=== PATIENT | female | born 1965 | race Caucasian/White ===

== ENCOUNTER 2018-12-03 08:06 | Day surgery (SDC) | payer BC ==
--- NOTE | 2018-12-03 07:25 | PCM.PREANE ---
Preanesthetic Assessment - Anesthesia/Transfusion/Family Hx Anesthesia History: Prior Anesthesia Without Reaction Family History of Anesthesia Reaction: No Transfusion History: No Prior Transfusion(s) Intubation History: Unknown - Review of Systems General: No Symptoms Pulmonary: No Symptoms (ETOH: rarely) Cardiovascular: No Symptoms (HTN/History of SVT:) Gastrointestinal: No Symptoms Neurological: No Symptoms (Obesity) Other: Reports: None, Diabetes (AM blood sugar:) - Physical Assessment NPO Status Date: 12/02/18 NPO Status Time: 23:00 Pulse: 68 O2 Sat by Pulse Oximetry: 94 Respiratory Rate: 16 Blood Pressure: 145/90 Temperature: 36.3 C Height: 1.68 m Weight: 122.47 kg ASA Class: 3 Mental Status: Alert & Oriented x3 Airway Class: Mallampati = 2 Dentition: Reports: Normal Dentition, [place](s), [place] Thyro-Mental Finger Breadths: 3 Mouth Opening Finger Breadths: 3 ROM/Head Extension: Full Lungs: Clear to Auscultation, Normal Respiratory Effort Cardiovascular: Regular Rate, Regular Rhythm, No Murmurs - Lab Values: All lab values reviewed and noted and within acceptable ranges to proceed with scheduled procedure. - Imaging/EKG Impressions: EKG: SR rate=60 - Allergies Allergies/Adverse Reactions: Allergies Allergy/AdvReac Type Severity Reaction Status Date / Time No Known Allergies Allergy Verified 12/02/18 10:08 - Anesthesia Plan Pre-Op Medication Ordered: Beta Madeline Beta Madeline: Nadolol Med Last Dose Date: 12/03/18 Med Last Dose Time: 06:45 - Acknowledgements Anesthesia Type Planned: MAC Pt an Appropriate Candidate for the Planned Anesthesia: Yes Alternatives and Risks of Anesthesia Discussed w Pt/Guardian: Yes Pt/Guardian Understands and Agrees with Anesthesia Plan: Yes PreAnesthesia Questionnaire HEENT History: Reports: Impaired Vision Cardiovascular History: Reports: Arrhythmia, Hypertension, Other (See Below) Other Cardiovascular History: svt Respiratory History: Reports: None Genitourinary History: Reports: None PEDIATRIC ASSISTANT History: Reports: None Neurological History: Reports: None Psychiatric History: Reports: None Endocrine/Metabolic History: Reports: Diabetes, Type II Hematologic History: Reports: None Immunologic History: Reports: None Oncologic (Cancer) History: Reports: None Dermatologic History: Reports: None - Past Surgical History Head Surgeries/Procedures: Reports: None HEENT Surgical History: Reports: Tonsillectomy Cardiovascular Surgical History: Reports: None Respiratory Surgical History: Reports: None GI Surgical History: Reports: Other (See Below) Other GI Surgeries/Procedures: SIGMOIDOSCOPY Female Surgical History: Reports: Breast Biopsy Male Surgical History: Reports: None Endocrine Surgical History: Reports: None Neurological Surgical History: Reports: None Musculoskeletal Surgical History: Reports: None Oncologic Surgical History: Reports: None Dermatological Surgical History: Reports: None - SUBSTANCE USE Smoking Status *Q: Never Smoker Recreational Drug Use History: No - HOME MEDS Home Medications: Home Meds Canagliflozin [Invokana] 300 mg PO DAILY 12/02/18 [History] Ibuprofen 600 mg PO Q4H PRN 12/02/18 [History] Lisinopril 10 mg PO DAILY 12/02/18 [History] Meloxicam 15 mg PO DAILY 12/02/18 [History] Nadolol [Naldol] 40 mg PO DAILY 12/02/18 [History] Triamterene/Hydrochlorothiazid [Maxzide 75 mg-50 mg Tablet] 1 tab PO DAILY 12/02 [History] metFORMIN HCl [Metformin HCl] 1,000 mg PO BID 12/02/18 [History] - CURRENT (IN HOUSE) MEDS Current Meds: Current Medications Lactated Ringer's (Ringers, Lactated) 1,000 mls @ 125 mls/hr IV ASDIRECTED TIMUR Stop: 12/03/18 23:00 Lidocaine/Sodium Bicarbonate (Buffered Lidocaine 1% In Ns 8.4%) 0.25 ml IDERM ONETIME PRN PRN Reason: Prior to IV Start Stop: 12/03/18 18:00 Sodium Chloride (Saline Flush) 10 ml FLUSH ASDIRECTED PRN PRN Reason: Keep Vein Open Stop: 12/03/18 18:00
[~2018-12-03 08:06] MED LIST: Lactated Ringers 1,000 ML IV SCH; Lactated Ringers 1,000 ML ONE; Lidocaine 1% 6 ML ONE; Lidocaine 1%/Sod Bicarbonate in NS 8.4% 1 ML Syringe IDERM PRN; Ondansetron 4 MG/2 ML SDV ONE; Sodium Chloride 0.9% 10 ML Syringe FLUSH PRN; Succinylcholine/Normal Saline 100 MG/5 ML Syringe ONE
[2018-12-03] MEDS ORDERED: HYDROmorphone 0.5 MG/0.5 ML Syringe ONE (08:07)
[2018-12-03] MEDS ORDERED: Propofol 200 MG/20 ML SDV ONE (08:07)
[2018-12-03] MEDS ORDERED: Midazolam 1 MG/ML 2 ML SDV ONE (08:08)
[2018-12-03] MEDS ORDERED: fentaNYL 100 MCG/2 ML SDV ONE (08:08)
[2018-12-03] MEDS ORDERED: Lidocaine 1% with EPINEPHrine 1:100,000 20 ML MDV ONE (08:37)
[2018-12-03] MEDS ORDERED: Sodium Chloride 0.9% 50 ML SDV ONE (08:38)
--- NOTE | 2018-12-03 08:50 | PCM.OPNOTE ---
- General Post-Op/Procedure Note Date of Surgery/Procedure: 12/03/18 Operative Procedure(s): Hysteroscopy, D&C Findings: Hysteroscopy with no discrete endometrial polyp encountered. Few areas of more thickened endometrial lining. Mostly present on the anterior surface of the uterus. Difficult to get pressure high enough to see ostia completely, but grossly normal. Pre Op Diagnosis: Office biopsy with portions of endometrial polyp and squamous morules Post-Op Diagnosis: Same Anesthesia Technique: MAC Primary Surgeon: Desi Cardozo Anesthesia Provider: Gardenia Myles Pathology: Endometrial curetting sent to pathology Fluid Replacement, Intraop: 800 Output, Urine Amount: 20 EBL in mLs: 5 Complications: None Condition: Good Free Text/Narrative:: The risks, benefits, indications, potential complications, and alternatives were explained to the patient and informed consent obtained. Patient was brought to the OR where anesthesia was induced without difficulty. She was placed in the dorsal lithotomy position and prepped and draped in the typical fashion. Speculum placed in the vagina. Paracervical block performed with about 10 cc of 1% plain lidocaine. Tenaculum placed on the anterior lip of the cervix. The cervix was then sequentially dilated to a #21 dilator to accommodate a 5-mm hysteroscope. A 5-mm hysteroscope was then introduced under direct visualization and the uterus was distended. Findings as above. The hysteroscope was then withdrawn and sharp curettage performed with care to sample all surfaces of uterine wall. Gritty texture noted at end of procedure. Tenaculum removed and sites appeared hemostatic. Patient tolerated procedure well and was taken to PACU
[2018-12-03] MEDS ORDERED: Ketamine 500 mg/10 ML MDV ONE (09:02)
[2018-12-03] MEDS ORDERED: ePHEDrine 50 MG/ML SDV IVPUSH PRN (09:10)
[2018-12-03] MEDS ORDERED: HYDROmorphone 0.5 MG/0.5 ML Syringe IVPUSH PRN (09:10)
[2018-12-03] MEDS ORDERED: fentaNYL 100 MCG/2 ML SDV IVPUSH PRN (09:10)
[2018-12-03] MEDS ORDERED: Ondansetron 4 MG/2 ML SDV IVPUSH PRN (09:10)
[2018-12-03] MEDS ORDERED: diphenhydrAMINE 50 MG/ML SDV IVPUSH PRN (09:10)
[2018-12-03] MEDS ORDERED: Lidocaine 1% 50 ML MDV ONE (09:15)
[2018-12-03] MEDS ORDERED: Ketorolac 30 MG/ML SDV ONE (09:17)
--- NOTE | 2018-12-03 09:40 | PCM48HPAN ---
Post Anesthesia Note - EVALUATION WITHIN 48HRS OF ANESTHETIC Vital Signs in Normal Range: Yes Patient Participated in Evaluation: Yes Respiratory Function Stable: Yes Airway Patent: Yes Cardiovascular Function Stable: Yes Hydration Status Stable: Yes Pain Control Satisfactory: Yes Nausea and Vomiting Control Satisfactory: Yes Mental Status Recovered: Yes Pulse Rate: 64 SaO2: 95 Resp Rate: 10 Temperature: 36.4 C Blood Pressure: 124/78 Pulse Rate: 64
== END 2018-12-03 10:55 | disposition home or self-care (01) ==
LOC: JD.SDS 08:06
PROVIDERS: ATTEND Obstetrics & Gynecology
DX: N84.0 Polyp of corpus uteri (principal); I10 Essential (primary) hypertension; E11.9 Type 2 diabetes mellitus without complications; E66.9 Obesity, unspecified; Z68.41 Body mass index [BMI] 40.0-44.9, adult; I47.1 Supraventricular tachycardia; Z79.84 Long term (current) use of oral hypoglycemic drugs; Z79.899 Other long term (current) drug therapy
CPT/HCPCS: 36415; 58558; 80053; 81025; 82962; 85025; 93005; J1170; J1885; J2001; J2250; J2405; J2704; J3010; J7120; 00952; J0330